=== PATIENT | male | born 1955 | race Caucasian/White ===

== ENCOUNTER 2022-03-09 05:48 | Inpatient (IN) ==
[2022-03-09] MEDS ORDERED: Iopamidol - 370 500 ML MLS IVP ONE ×2 (05:55→06:07)
[2022-03-09] MEDS ORDERED: 0.9 % Sodium Chloride 1,000 ML IVC ONE ×2 (06:08→07:51)
[2022-03-09] MEDS ORDERED: Morphine Sulfate 2 MG/ML SYRINGE IVP ONE (06:08)
[2022-03-09 06:49] LABS: Basophils # 0.1 K/mcL (0.0-0.2); Basophils % 0.8 %; Eosinophils # 0.1 K/mcL (0.0-0.6); Hematocrit 41.2 % (37.5-50.1); Hemoglobin 13.1 g/dL (12.9-16.9); Immature Granulocytes % 0.5 % (0-4); Lymphocytes # 0.7 K/mcL (0.6-4.6); Lymphocytes % 9.2 %; Mean Corpuscular HGB Conc 31.8 g/dL (31.6-35.5); Mean Corpuscular Hemoglobin 29.6 pg (28.0-33.3); Mean Platelet Volume 12.5 fL (9.4-12.4); Monocytes # 0.7 K/mcL (0.0-1.3); Monocytes % 9.1 %; Neutrophils # 6.2 K/mcL (1.6-8.9); Platelet Count 209 K/mcL (140-400); Red Blood Count 4.43 M/mcL (4.19-5.50); Red Cell Distribution Width 12.7 % (11.5-14.5); Segmented Neutrophils % 79.4 %; White Blood Count 7.8 K/mcL (4.3-11.1)
[2022-03-09 07:14] LABS: INR 1.1; Prothrombin Time 11.9 Seconds (9.4-12.1)
[2022-03-09 07:33] LABS: Influenza A PCR Negative (Negative); Influenza B PCR Negative (Negative); Resp. Syncytial Virus PCR Negative (Negative)
[2022-03-09 07:45] LABS: SARS-CoV-2 by PCR (In House) Negative (Negative)
[2022-03-09 07:46] LABS: Albumin 3.8 g/dL (3.5-5.7); Albumin/Globulin Ratio 1.2 (1.1-2.2); Bilirubin,Direct 0.3 mg/dL (0.0-0.2); Bilirubin,Indirect 0.8 mg/dL (0.0-1.0); Bilirubin,Total 1.1 mg/dL (0.3-1.0); Globulin 3.1 g/dL (2.4-3.5); Potassium 5.4 mEq/L (3.5-5.1); Thyroid Stimulating Hormone 5.983 mcIU/mL (0.340-5.600); Total Protein 6.9 g/dL (6.4-8.9); Troponin I 0.04 ng/mL (< 0.04)
[2022-03-09 08:23] LABS: Bilirubin,Urine Negative (Negative); Blood,Urine Negative (Negative); Clarity,Urine Clear (Clear); Color,Urine Yellow (Yellow); Glucose,Urine (UA) Normal (Normal); Ketones,Urine Negative (Negative); Leukocyte Esterase,Urine Negative (Negative); Nitrite,Urine Negative (Negative); Protein,Urine Trace mg/dL (Neg-Trace); Specific Gravity,Urine 1.022 (1.010-1.025); Urobilinogen,Urine Normal (Normal)
[2022-03-09 10:43] LABS: Triiodothyronine (T3) Free 2.61 pg/mL (2.50-3.90)
[2022-03-09] MEDS ORDERED: Naloxone 0.4 MG/ML INJ IVP PRN (15:04)
[2022-03-09] MEDS ORDERED: Nitroglycerin 0.4 MG TAB.SUBL SL PRN (15:06)
[2022-03-09] MEDS: 0.9 % Sodium Chloride 1,000 ML IVC SCH (16:15)
[2022-03-09 17:47] LABS: Hepatitis B Surface Antigen Nonreactive (Nonreactive)
[2022-03-09 18:16] LABS: Hepatitis B Core IgM Nonreactive (Nonreactive)
[2022-03-09 18:19] LABS: Hepatitis A Antibody IgM Nonreactive (Nonreactive); Hepatitis C Virus Antibody Nonreactive (Nonreactive)
[2022-03-09] MEDS: *HR* Heparin 5,000 UNIT/ML VIAL SQ SCH (23:41)
[2022-03-10] MEDS: 0.9 % Sodium Chloride 1,000 ML IVC SCH (02:02)
[2022-03-10 04:51] LABS: Basophils # 0.1 K/mcL (0.0-0.2); Eosinophils # 0.1 K/mcL (0.0-0.6); Eosinophils % 2.1 %; Hematocrit 30.5 % (37.5-50.1); Immature Granulocytes % 0.8 % (0-4); Lymphocytes # 0.6 K/mcL (0.6-4.6); Lymphocytes % 10.2 %; Mean Corpuscular HGB Conc 32.1 g/dL (31.6-35.5); Mean Corpuscular Hemoglobin 29.9 pg (28.0-33.3); Mean Platelet Volume 12.4 fL (9.4-12.4); Monocytes # 0.6 K/mcL (0.0-1.3); Monocytes % 9.6 %; Neutrophils # 4.6 K/mcL (1.6-8.9); Platelet Count 163 K/mcL (140-400); Red Blood Count 3.28 M/mcL (4.19-5.50); Segmented Neutrophils % 76.3 %; White Blood Count 6.1 K/mcL (4.3-11.1)
[2022-03-10 05:22] LABS: Alanine Aminotransferase 187 Units/L (7-52); Albumin 2.8 g/dL (3.5-5.7); Albumin/Globulin Ratio 1.2 (1.1-2.2); Alkaline Phosphatase 297 Units/L (34-104); Aspartate Amino Transferase 356 Units/L (13-39); BUN/Creatinine Ratio 27 (6-26); Bilirubin,Total 1.1 mg/dL (0.3-1.0); Blood Urea Nitrogen 22 mg/dL (8-23); Calcium 8.5 mg/dL (8.6-10.3); Carbon Dioxide 24 mEq/L (23-29); Chloride 108 mEq/L (98-107); Globulin 2.3 g/dL (2.4-3.5); Glucose 81 mg/dL (70-105); Magnesium 1.7 mg/dL (1.6-2.6); Osmolality,Calculated 286 (280-300); Potassium 4.9 mEq/L (3.5-5.1); Sodium 137 mEq/L (136-145); Total Protein 5.1 g/dL (6.4-8.9)
[2022-03-10] MEDS: *HR* Heparin 5,000 UNIT/ML VIAL SQ SCH ×3 (05:54→21:42)
[2022-03-10 06:06] LABS: Hemoglobin 9.8 g/dL (12.9-16.9)
[2022-03-10] MEDS ORDERED: Regadenoson 0.4 MG/5 ML SYRINGE IVP ONE (06:32)
[2022-03-10] MEDS: Aspirin 81 MG TAB.CHEW PO SCH (10:15)
[2022-03-10] MEDS: polyethylene glycoL 3350 17 GM POWD.PACK PO SCH (16:24)
[2022-03-10] MEDS: Ondansetron 4 MG/2 ML VIAL IVP PRN (16:28)
[2022-03-11] MEDS: *HR* Heparin 5,000 UNIT/ML VIAL SQ SCH (05:50)
[2022-03-11 08:53] LABS: Basophils % 0.4 %; Eosinophils # 0.1 K/mcL (0.0-0.6); Eosinophils % 0.9 %; Hematocrit 26.5 % (37.5-50.1); Hemoglobin 8.5 g/dL (12.9-16.9); Immature Granulocytes % 1.1 % (0-4); Lymphocytes # 0.6 K/mcL (0.6-4.6); Lymphocytes % 9.2 %; Mean Corpuscular HGB Conc 32.1 g/dL (31.6-35.5); Mean Corpuscular Hemoglobin 29.8 pg (28.0-33.3); Mean Platelet Volume 12.6 fL (9.4-12.4); Monocytes # 0.6 K/mcL (0.0-1.3); Monocytes % 7.9 %; Neutrophils # 5.6 K/mcL (1.6-8.9); Platelet Count 184 K/mcL (140-400); Red Blood Count 2.85 M/mcL (4.19-5.50); Red Cell Distribution Width 13.5 % (11.5-14.5); Segmented Neutrophils % 80.5 %
[2022-03-11] MEDS: polyethylene glycoL 3350 17 GM POWD.PACK PO SCH (09:50)
[2022-03-11] MEDS: Aspirin 81 MG TAB.CHEW PO SCH (09:54)
[2022-03-11 09:55] LABS: Albumin 2.8 g/dL (3.5-5.7); Albumin/Globulin Ratio 1.4 (1.1-2.2); Bilirubin,Total 1.7 mg/dL (0.3-1.0); Calcium 8.4 mg/dL (8.6-10.3); Potassium 4.6 mEq/L (3.5-5.1); Total Protein 4.8 g/dL (6.4-8.9)
[2022-03-11] MEDS ORDERED: Sennosides/Docusate Sodium TABLET PO ONE (10:16)
[2022-03-11] MEDS ORDERED: Ondansetron 4 MG/2 ML VIAL IVP PRN (12:31)
[2022-03-11] MEDS ORDERED: *HR* Propofol 200 MG/20 ML VIAL IVP ONE (12:50)
[2022-03-11] MEDS ORDERED: *HR* FentaNYL (PF) 100 MCG/2 ML VIAL ONE (12:50)
[2022-03-11] MEDS ORDERED: Lidocaine -MPF 2% 5 ML VIAL ONE (12:51)
[2022-03-11] MEDS ORDERED: *HR* Rocuronium Bromide 50 MG/5 ML VIAL ONE (12:51)
[2022-03-11] MEDS ORDERED: Ondansetron 4 MG/2 ML VIAL ONE (12:51)
[2022-03-11] MEDS ORDERED: *HR* Succinylcholine 200 MG/10 ML VIAL IVP ONE (12:51)
[2022-03-11] MEDS: Pantoprazole 40 MG in 0.9 % Sodium Chloride Mini Bag 100 ML IVC SCH ×3 (15:25→20:10)
[2022-03-11 16:35] LABS: Hematocrit 22.5 % (37.5-50.1)
[2022-03-11] MEDS ORDERED: Ringers Solution, Lactated 1,000 ML IVC SCH (17:45)
[2022-03-11] MEDS ORDERED: Metoclopramide 10 MG/2 ML VIAL IVP ONE (18:56)
[2022-03-11] MEDS ORDERED: Ipratropium/Albuterol Neb 3 ML IH PRN (21:00)
[2022-03-11] MEDS ORDERED: 0.9 % Sodium Chloride 250 ML ONE (22:19)
[2022-03-11 22:23] LABS: Hemoglobin 6.9 g/dL (12.9-16.9)
[2022-03-12] MEDS: Pantoprazole 40 MG in 0.9 % Sodium Chloride Mini Bag 100 ML IVC SCH ×3 (01:04→12:22)
[2022-03-12 08:43] LABS: Albumin 2.4 g/dL (3.5-5.7); Albumin/Globulin Ratio 1.3 (1.1-2.2); Bilirubin,Direct 0.7 mg/dL (0.0-0.2); Bilirubin,Indirect 1.4 mg/dL (0.0-1.0); Bilirubin,Total 2.1 mg/dL (0.3-1.0); Calcium 7.8 mg/dL (8.6-10.3); Globulin 1.8 g/dL (2.4-3.5); Magnesium 1.7 mg/dL (1.6-2.6); Phosphorous 2.6 mg/dL (2.7-4.5); Potassium 4.3 mEq/L (3.5-5.1); Total Protein 4.2 g/dL (6.4-8.9)
[2022-03-12 08:50] LABS: Basophils # 0.1 K/mcL (0.0-0.2); Basophils % 0.6 %; Eosinophils # 0.1 K/mcL (0.0-0.6); Eosinophils % 0.8 %; Hematocrit 28.7 % (37.5-50.1); Immature Granulocytes % 1.2 % (0-4); Lymphocytes % 8.8 %; Mean Corpuscular HGB Conc 33.8 g/dL (31.6-35.5); Mean Corpuscular Hemoglobin 30.7 pg (28.0-33.3); Mean Corpuscular Volume 90.8 fL (83.0-100.0); Mean Platelet Volume 13.3 fL (9.4-12.4); Monocytes % 9.5 %; Neutrophils # 8.6 K/mcL (1.6-8.9); Platelet Count 107 K/mcL (140-400); Red Blood Count 3.16 M/mcL (4.19-5.50); Red Cell Distribution Width 13.7 % (11.5-14.5); Segmented Neutrophils % 79.1 %
[2022-03-12 08:57] LABS: Hemoglobin 9.7 g/dL (12.9-16.9); White Blood Count 10.9 K/mcL (4.3-11.1)
[2022-03-12 10:19] LABS: ANA IgG by ELISA DETECTED (None Detected)
[2022-03-12 20:49] LABS: Hemoglobin 9.9 g/dL (12.9-16.9)
[2022-03-13 05:36] LABS: Alanine Aminotransferase 179 Units/L (7-52); Albumin 2.5 g/dL (3.5-5.7); Albumin/Globulin Ratio 1.3 (1.1-2.2); Alkaline Phosphatase 256 Units/L (34-104); Aspartate Amino Transferase 390 Units/L (13-39); BUN/Creatinine Ratio 37 (6-26); Bilirubin,Direct 0.8 mg/dL (0.0-0.2); Bilirubin,Indirect 1.7 mg/dL (0.0-1.0); Bilirubin,Total 2.5 mg/dL (0.3-1.0); Blood Urea Nitrogen 31 mg/dL (8-23); Calcium 8.2 mg/dL (8.6-10.3); Carbon Dioxide 27 mEq/L (23-29); Chloride 110 mEq/L (98-107); Globulin 1.9 g/dL (2.4-3.5); Glucose 85 mg/dL (70-105); Magnesium 1.9 mg/dL (1.6-2.6); Osmolality,Calculated 298 (280-300); Phosphorous 2.5 mg/dL (2.7-4.5); Potassium 4.1 mEq/L (3.5-5.1); Sodium 141 mEq/L (136-145); Total Protein 4.4 g/dL (6.4-8.9)
[2022-03-13 05:52] LABS: Hematocrit 29.3 % (37.5-50.1); Hemoglobin 9.6 g/dL (12.9-16.9); Mean Corpuscular HGB Conc 32.8 g/dL (31.6-35.5); Mean Corpuscular Volume 91.6 fL (83.0-100.0)
[2022-03-13 05:54] LABS: Basophils # 0.1 K/mcL (0.0-0.2); Basophils % 1.1 %; Eosinophils # 0.2 K/mcL (0.0-0.6); Eosinophils % 2.5 %; Immature Granulocytes % 1.8 % (0-4); Immature Platelets 18.9 % (1.1-6.1); Lymphocytes # 0.6 K/mcL (0.6-4.6); Lymphocytes % 6.9 %; Monocytes # 0.8 K/mcL (0.0-1.3); Monocytes % 8.4 %; Neutrophils # 7.4 K/mcL (1.6-8.9); Nucleated Red Blood Cells 0.2 /100 WBC (0); Red Cell Distribution Width 14.6 % (11.5-14.5); Segmented Neutrophils % 79.3 %; White Blood Count 9.3 K/mcL (4.3-11.1)
[2022-03-13 06:13] LABS: Platelet Count 87 K/mcL (140-400)
[2022-03-13] MEDS: Docusate Oral Soln 100 MG/10 ML UDC PO SCH (08:02)
[2022-03-13] MEDS ORDERED: polyethylene glycoL 3350 17 GM POWD.PACK PO SCH (09:00)
[2022-03-13 11:19] LABS: F-Actin (sm muscle) Ab IgG 29 Units (0-19)
[2022-03-13 11:32] LABS: Serine Protease-3 Antibody 2 AU/mL (0-19)
[2022-03-14 00:25] LABS: Smooth Muscle Ab Titer IgG 1:20 (<1:20)
[2022-03-14] MEDS: Docusate Oral Soln 100 MG/10 ML UDC PO SCH (01:01)
[2022-03-14] MEDS: Ondansetron 4 MG/2 ML VIAL IVP PRN (02:03)
[2022-03-14 02:58] LABS: Basophils % 0.3 %; Eosinophils % 0.1 %; Hematocrit 24.2 % (37.5-50.1); Hemoglobin 7.8 g/dL (12.9-16.9); Immature Granulocytes % 1.6 % (0-4); Immature Platelets 26.3 % (1.1-6.1); Lymphocytes # 0.4 K/mcL (0.6-4.6); Lymphocytes % 2.6 %; Mean Corpuscular HGB Conc 32.2 g/dL (31.6-35.5); Mean Corpuscular Volume 93.1 fL (83.0-100.0); Monocytes % 6.6 %; Neutrophils # 12.9 K/mcL (1.6-8.9); Nucleated Red Blood Cells 0.2 /100 WBC (0); Platelet Count 65 K/mcL (140-400); Red Cell Distribution Width 15.7 % (11.5-14.5); Segmented Neutrophils % 88.8 %; White Blood Count 14.5 K/mcL (4.3-11.1)
[2022-03-14] MEDS ORDERED: 0.9 % Sodium Chloride 1,000 ML IVC ONE ×2 (03:09→07:28)
[2022-03-14 03:14] LABS: Albumin 2.4 g/dL (3.5-5.7); Albumin/Globulin Ratio 1.2 (1.1-2.2); Bilirubin,Direct 1.4 mg/dL (0.0-0.2); Bilirubin,Indirect 2.5 mg/dL (0.0-1.0); Bilirubin,Total 3.9 mg/dL (0.3-1.0); Potassium 4.8 mEq/L (3.5-5.1); Total Protein 4.4 g/dL (6.4-8.9)
[2022-03-14] MEDS ORDERED: 0.9 % Sodium Chloride 500 ML IVC ONE (05:42)
[2022-03-14 06:10] LABS: Hematocrit 17.7 % (37.5-50.1)
[2022-03-14 06:21] LABS: Hemoglobin 5.7 g/dL (12.9-16.9)
[2022-03-14] MEDS ORDERED: 0.9 % Sodium Chloride 1,000 ML IVC SCH (07:15)
[2022-03-14] MEDS ORDERED: Metoclopramide 10 MG/2 ML VIAL IVP ONE (07:17)
[2022-03-14] MEDS ORDERED: 0.9 % Sodium Chloride 1,000 ML ONE (07:20)
[2022-03-14] MEDS ORDERED: 0.9 % Sodium Chloride 250 ML ONE (07:26)
[2022-03-14] MEDS ORDERED: Pantoprazole 40 MG in 0.9 % Sodium Chloride Mini Bag 100 ML IVC SCH (07:30)
[2022-03-14] MEDS ORDERED: 0.9 % Sodium Chloride 250 ML IVC SCH (07:30)
[2022-03-14 08:20] VITALS: TEMP 97.6
[2022-03-14] MEDS ORDERED: Famotidine 20 MG/2 ML VIAL IVP ONE (08:48)
[2022-03-14] MEDS ORDERED: EPHEDrine sulfate 50 MG/10 ML VIAL IVP ONE ×2 (08:50→08:51)
[2022-03-14] MEDS ORDERED: *HR* Rocuronium Bromide 50 MG/5 ML VIAL ONE (08:50)
[2022-03-14] MEDS ORDERED: *HR* Propofol 200 MG/20 ML VIAL IVP ONE (08:50)
[2022-03-14] MEDS ORDERED: *HR* Succinylcholine 200 MG/10 ML VIAL IVP ONE (08:50)
[2022-03-14] MEDS ORDERED: Norepinephrine 4 MG/254 ML IV.SOLN IVC ONE (09:03)
[2022-03-14] MEDS ORDERED: 0.9 % Sodium Chloride 500 ML ONE (09:03)
[2022-03-14] MEDS ORDERED: Lidocaine -MPF 1% 5 ML AMPUL INFILT ONE (09:19)
[2022-03-14] MEDS ORDERED: *HR* EPINEPHrine 1 MG/10 ML SYRINGE IVP ONE (09:28)
[2022-03-14] MEDS ORDERED: *HR* Atropine Sulfate 1 MG/10 ML SYRINGE IV ONE (09:28)
[2022-03-14 10:26] VITALS: O2SAT 55
[2022-03-14 10:37] VITALS: BP 0/0; PULSE 0
[2022-03-14 11:17] LABS: ANA HEp-2 IgG IFA <1:80 (<1:80)
== END 2022-03-14 09:29 | disposition expired | DRG 375 ==
LOC: 3ANU 05:48 → EMEROOARM 05:48 → SUATTDRO 13:51 → 3ANU 14:47 → SUATTDRO 03-11 18:12 → ICNU 03-14 08:12
PROVIDERS: ADMIT Hospitalist; ATTEND Pediatrics
PROC: ENDOEBX (2022-03-11 12:15)